=== PATIENT | female | born 1990 | race Caucasian/White ===

== ENCOUNTER 2019-12-13 10:21 | Emergency (ER) | payer MEDICAID, SELFPAY ==
[2019-12-13] VITALS (11 sets, daily range): BP systolic 120–152; BP diastolic 68–89; PULSE 101–125; RESP 13–27; TEMP 37.9; O2SAT 97–100; BMI 23.9
--- NOTE | 2019-12-13 11:26 | ED_ITS ---
HPI - Skin/Abscess/Foreign Bdy General Chief complaint: Skin/Abscess/Foreign Body Stated complaint: Needs Cyst drained Time Seen by Provider: 12/13/19 10:24 Source: patient Mode of arrival: Ambulatory Limitations: no limitations History of Present Illness HPI narrative: 29-year-old woman otherwise healthy presents with septic episode of a Bartholin's duct cyst right labia. First episode was approximately 2 months ago [facility] Emergency Room were a word catheter was placed. Apparently this was exceptionally tender and subsequently became infected. Catheter was removed by physician on [facility] and she was treated with antibiotics successfully. About 2 weeks ago she began noting recurrent fullness in the right labia. It progressed to approximately 2-3 cm in size is becoming more annoying and she would like to have it definitively treated. No new sexual partners, no vaginal discharge, no discharge from the cyst and denies any fevers. Related Data Previous Rx's Medication Instructions Recorded hydrocodone 5 mg-acetaminophen 325 2 tab PO Q4-6H PRN #20 tab 12/13/19 mg tablet sulfamethoxazole 800 1 tab PO Q12H #14 tab 12/13/19 mg-trimethoprim 160 mg tablet Allergies Allergy/AdvReac Type Severity Reaction Status Date / Time No Known Drug Allergies Allergy Verified 12/13/19 10:31 Review of Systems Review of Systems Narrative: Pertinent positive and negative findings as per HPI Describes the fall about a week ago to explain the bruises to the right thigh and legs Remainder of review of systems is otherwise unremarkable for Constitutional: Fevers, chills, weakness ENT: No sore throat, neck pain, ear pain CV: Chest pain, palpitations, dyspnea on exertion Respiratory: Cough, wheeze, dyspnea GI: Nausea, vomiting, diarrhea, change in bowel habits, black or bloody stools : Dysuria, hematuria, flank pain MS: Muscle weakness, numbness, joint swelling or warmth Skin: Rashes, nonhealing lesions Neuro: Syncope, dizziness, tingling Psych: Depression, anxiety, suicidal ideation Endocrine: Fatigue, heat or cold intolerance, very dry skin Heme: Easy bruising or bleeding Allergy: Seasonal rhinorrhea, itchy eyes Patient History Medical History (Updated 12/13/19 @ 13:13 by Lelo Boyd MD) Bartholin's duct cyst (Acute) Social History Smoking Status: Current every day smoker Smoking Status: Current every day smoker alcohol intake frequency: 3 or more drinks per day Alcohol type: hard liquor Substance Use Type: does not use and marijuana Exam Narrative Exam Narrative: General: Healthy appearing, in no acute distress. Able to give a complete and coherent history. Well-nourished well-developed HEENT: Moist mucous membranes, normal sclera with reactive pupils, Neck: No JVD, supple Respiratory: Lungs are clear to auscultation, no wheezing no rales no rhonchi. Full and symmetrical air movement Cardiac: Tachycardic with Regular rate and rhythm no murmurs no bruits Abdomen: Soft nontender good bowel tones, no flank pain Skin: Warm and dry, no rashes Neurologic: Grossly neurologically intact with no obvious asymmetries or abnormalities Extremities: Large bruise right hip, lateral thigh multiple bruises over both legs all about the same stages of healing, well perfused Psych: Cooperative, appropriate insight and affect Genitals: Right Bartholin duct cyst approximately 3 cm, no redness or erythema. No inguinal adenopathy or other evidence of acute infection. Initial Vital Signs Initial Vital Signs: Vital Signs Temperature 100.3 F H 12/13/19 10:25 Pulse Rate 125 H 12/13/19 10:25 Respiratory Rate 13 12/13/19 10:25 Blood Pressure 139/89 12/13/19 10:25 Pulse Oximetry 97 12/13/19 10:25 Procedures Procedural Sedation Consent signed: No Time out performed: Yes Indication: incision and drainage of abscess ASA Class: I Mallampati Airway Classification: Class I Time of Last PO Intake: 06:02 Preparation: monitoring manager applied, pulse oximeter, capnometry used, supplemental O2 applied, suction/airway equipment at bedside and IV secured Fentanyl: IV Fentanyl dose (mcg): 10 Midazolam: IV Midazolam dose (mg): 1 ED Sedation Level: Minimal Patient Tolerated Procedure: Well Complications: none Additional Comments: Marsupialization of bartholin Duct cyst performed by Dr. Aburto. Course Orders Ordered: Discontinued Medications Fentanyl (Sublimaze) 100 mcg IV NOW ONE Stop: 12/13/19 11:18 Last Admin: 12/13/19 12:31 Dose: 100 mcg Documented by: JNUNEZ Lidocaine HCl (Xylocaine 1%) 10 ml INJ NOW ONE Stop: 12/13/19 11:18 Lidocaine HCl (Xylocaine 1% (Pf)) 1 ml INJ NOW ONE Stop: 12/13/19 12:01 Lidocaine/Sodium Bicarbonate (Buffered Lidocaine 10 Ml Syr) 10 ml INJ NOW ONE Stop: 12/13/19 11:52 Last Admin: 12/13/19 12:34 Dose: 10 ml Documented by: MOSES Lorazepam (Ativan) 0.5 mg IV NOW ONE Stop: 12/13/19 11:18 Last Admin: 12/13/19 11:35 Dose: 0.5 mg Documented by: MOSES Midazolam HCl (Versed) 1 mg IV NOW ONE Stop: 12/13/19 11:18 Last Admin: 12/13/19 12:33 Dose: 1 mg Documented by: MOSES Vital Signs Vital signs: Vital Signs - 8 hr 12/13/19 10:25 12/13/19 10:30 12/13/19 11:30 Temperature 100.3 F H Pulse Rate 125 H 121 H 101 H Respiratory Rate 13 22 27 H Blood Pressure 139/89 Blood Pressure [Left Arm] 137/89 129/87 Pulse Oximetry 97 98 99 12/13/19 12:39 12/13/19 12:46 12/13/19 12:48 Temperature Pulse Rate 121 H 115 H 120 H Respiratory Rate 26 H 20 27 H Blood Pressure Blood Pressure [Left Arm] 143/79 H 152/83 H 143/83 H Pulse Oximetry 98 99 99 12/13/19 12:51 12/13/19 12:53 12/13/19 12:58 Temperature Pulse Rate 120 H 117 H Respiratory Rate 16 18 24 Blood Pressure Blood Pressure [Left Arm] 130/73 120/77 Pulse Oximetry 99 97 12/13/19 13:38 Temperature Pulse Rate 111 H Respiratory Rate 25 H Blood Pressure Blood Pressure [Left Arm] 129/72 Pulse Oximetry 99 MDM - Skin/Abscess/Foreign Bdy ECG Data Attestation: I personally reviewed and interpreted this ECG as follows: Interpretation: Sinus tach at 123 Normal axis, normal intervals Q-waves in leads II,III and AVF without any acute ischemic changes currently MDM Narrative Medical decision making narrative: Right Bartholin's duct cyst. Since she had such a negative experience with initial treatment with word catheter and subsequent infection and it has recurred fairly quickly after that brief discussion with Dr. Aburto regarding definitive treatment. Dr. Aburto came to examine the patient and discussed options. Together they chose to proceed with marsupialization procedure. Due to covid issues, as well as access difficulties due to living on [facility], will opt to do procedural sedation in the emergency department and Dr. Aburto will do the marsupialization procedure in the emergency department Discharge Plan Departure Patient Disposition: Home Clinical Impression: Bartholin's duct cyst Instructions: DI for Moderate Sedation, DI for Bartholin Gland Cyst Activity Restrictions/Additional Instructions: Thank you for coming in today Dr. Aburto was the OBGYN who did the marsupialization of your Bartholin duct cyst (cut the cyst open and so the edges to the outside so it heals completely without the option of reforming). Do expect a bit of bleeding and tenderness for the next couple of days. Using water to flow over your labia as you start to pee will help avoid any stinging from the urine. Use pain medication in antibiotics as prescribed. Using 400 mg of ibuprofen (2 [id number] pills) and 1 Tylenol every 6 hours can be very helpful in controlling pain. If you notice increasing pain, redness, odor, more swelling all of these can not indicated infection and none of these are expected. Please follow-up with a healthcare provider should you notice any of these Please schedule follow-up appointment with Dr. Aburto Thank you for coming over and I hope you heal quickly. Prescriptions: No Action hydrocodone-acetaminophen 5-325 mg tablet 2 tab PO Q4-6H PRN (Reason: pain) Qty: 20 RF: 0 sulfamethoxazole-trimethoprim [Bactrim DS] 800-160 mg tablet 1 tab PO Q12H Qty: 14 RF: 0 Referrals: Latrice Aburto MD [Physician] -
[2019-12-13] MEDS: LORazepam 2 MG/ML INJ 0.5 MG IV (11:35)
--- NOTE | 2019-12-13 12:27 | PC.NURSE ---
Addendum entered by Teri Reagan R.N. 01/24/20 08:34: Per XU Posey, Procedural sedation end at 1258 Addendum entered by Teri Reagan R.N. 12/26/19 14:43: This note indicates end of procedural sedation per XU Posey Original Note: Reassessed patient and patient states that she is feeling better. BP 139/81, HR 109, RR 20, O2 97%
[2019-12-13] MEDS: fentaNYL 100 MCG/2 ML INJ IV (12:31)
[2019-12-13] MEDS: MIDAZOLAM 2 MG/2 ML VIAL 1 MG IV (12:33)
[2019-12-13] MEDS: LIDO 1%/SOD BICARB 8.4% (10ML) 10 ML SYRINGE INJ (12:34)
--- NOTE | 2019-12-13 13:21 | PM.CN ---
History of Present Illness Consult details Date Patient Seen: 12/13/19 Time Patient Seen: 10:45 Chief complaint: Needs Cyst drained Reason for consult: Recurring Bartholin's gland cyst Requesting provider: Lelo Boyd Narrative: Patient presented to the emergency room complaining of recurring Bartholin's gland cyst. Patient was originally seen at another facility and a Goel catheter was placed. The patient had severe pain for a week and half and then abnormal discharge eventually was seen by another physician and started on antibiotics and pain medicine which improved her symptoms. About 2 weeks after the a Goel catheter was placed was removed. Patient was doing well but the cyst has recurred. It is large and somewhat uncomfortable. Patient denies any fevers. Patient denies any significant past medical history. Meds Home Medications and Allergies Home Medications Medication Instructions Recorded Confirmed Type hydrocodone 5 mg-acetaminophen 325 2 tab PO Q4-6H PRN #20 tab 12/13/19 Rx mg tablet sulfamethoxazole 800 1 tab PO Q12H #14 tab 12/13/19 Rx mg-trimethoprim 160 mg tablet Allergies Allergy/AdvReac Type Severity Reaction Status Date / Time No Known Drug Allergies Allergy Verified 12/13/19 10:31 Review of Systems Review of Systems Narrative: Swelling in the right side of her vaginal opening that is somewhat on comfort ROS: Yes All systems reviewed with the patient and are negative except as otherwise documented Exam Vital Signs (past 8 hours): - 12/13/19 10:25 12/13/19 10:30 12/13/19 11:30 Temperature 100.3 F H Pulse Rate 125 H 121 H 101 H Respiratory Rate 13 22 27 H Blood Pressure 139/89 Blood Pressure [Left Arm] 137/89 129/87 Pulse Oximetry 97 98 99 12/13/19 12:39 12/13/19 12:46 12/13/19 12:48 Temperature Pulse Rate 121 H 115 H 120 H Respiratory Rate 26 H 20 27 H Blood Pressure Blood Pressure [Left Arm] 143/79 H 152/83 H 143/83 H Pulse Oximetry 98 99 99 12/13/19 12:51 12/13/19 12:53 12/13/19 12:58 Temperature Pulse Rate 120 H 117 H Respiratory Rate 16 18 24 Blood Pressure Blood Pressure [Left Arm] 130/73 120/77 Pulse Oximetry 99 97 Oxygen Delivery Method Room Air Oxygen Flow Rate 2 Narrative Exam Narrative: 6 cm swelling in the right vaginal opening in the Bartholin's gland area. Not particularly painful. No redness. No other abnormalities externally. Assessment & Plan Assessment and plan (1) Bartholin's duct cyst: Problem details: Right side, 2nd recurrence Current visit: Yes Status: Acute Assessment & Plan narrative: Patient with recurrence of a Bartholin's gland cyst after a prior Goel catheter. Patient was given options for placement of another were catheter verses marsupialization. Patient requested marsupialization in the ER under IV sedation. Consent form was reviewed with the patient. Risks are minimal for infection and recurrence despite the marsupialization. Consent form was signed and her questions were answered. See separate dictation for procedure. Time Spent With Patient Time with patient: 15-24 minutes
--- NOTE | 2019-12-13 13:36 | P.PCN_ITS ---
Procedures Date/Time Date of procedure: 12/13/19 Time of procedure: 12:30 General Procedure description: See the consult note. Consent form was signed prior to the procedure. Patient had no further questions. [facility] was [facility] in [facility]. She received IV sedation under supervision by Dr. Boyd. The skin was cleaned with Betadine. The area for incision was injected with approximately 2 cc 1% lidocaine with epinephrine. An incision was made with the scalpel. Large amount of clear mucus see discharge evacuated from the gland. For 0 Vicryl suture was used to stitch the gland to the skin in 5 sutures. Estimated blood loss was 10 cc. Patient tolerated the procedure well. Due to the coronavirus and the patient's distance from the office she will call if she feels she needs a follow-up appointment. She is to call if she has fevers, increasing pain, any concerns about the healing or recurrence of the cyst. Complications: none
== END 2019-12-13 14:35 | disposition home or self-care (01) ==
PROVIDERS: Emergency Provider Emergency Medicine; Referring Provider Emergency Medicine
DX: N75.0 Cyst of Bartholin's gland (principal)
CPT/HCPCS: 10060; 56420; 93005; 94770; 96374; 96375; 99152; 99285; 99291; J2060; J2250; J3010

== ENCOUNTER → 2020-02-16 13:43 | Outpatient (CLI) | payer OTHER, MEDICAID, SELFPAY ==
[2020-02-17 09:23] LABS: COVID19 Sendout Not Detected (Not Detect)
== END ==
PROVIDERS: Visit Provider Physician Assistant
DX: Z01.812 Encounter for preprocedural laboratory examination (principal)
CPT/HCPCS: 87635

== ENCOUNTER → 2020-02-19 09:18 | Day surgery (SDC) | payer OTHER, MEDICAID, SELFPAY ==
[2020-02-13 12:43] VITALS: BMI 25.3
--- NOTE | 2020-02-19 10:51 | PM.CN ---
History of Present Illness Consult details Chief complaint: [id number] Meds Home Medications and Allergies Home Medications Medication Instructions Recorded Confirmed Type hydrocodone 5 mg-acetaminophen 325 2 tab PO Q4-6H PRN #20 tab 12/13/19 02/13/20 Rx mg tablet sulfamethoxazole 800 1 tab PO Q12H #14 tab 12/13/19 02/13/20 Rx mg-trimethoprim 160 mg tablet Allergies Allergy/AdvReac Type Severity Reaction Status Date / Time No Known Drug Allergies Allergy Verified 02/19/20 09:08 Exam Narrative Exam Narrative: Patient was brought to the operating room where she underwent general anesthesia. [facility] was [facility] in [facility] stirr[facility]. A 20 point check system was reviewed. Antibiotics were in prior to beginning case. Warming was in place. Pulsatile stockings were in place and functional. She was prepped and draped in the usual sterile fashion. 15 mL of half percent Marcaine with epinephrine were diluted with 70 mL of saline 10 cc was injected around the mid urethra. An incision was made over the mid urethra with a scalpel. The incision was extended laterally. A Batista catheter was placed with a catheter guide in place. The suprapubic exit sites were marked with a marking pen. The needles attached to the sling were placed from the bottom up and left in place. The catheter was removed and 300 mL of saline were placed in the bladder and cystoscopy was performed. A 70?? scope followed by a 0?? scope were used to look at the bladder and the urethra was no damage apparent with placement of the needles. Both ureters were seen to be functional. The graft was brought up loosely under the mid urethra. With sharp pressure against the bladder there was some leakage of urine. The plastic sheath was removed. The graft was cut under the skin of the suprapubic sites. Skin was closed with Steri-Strips. The vaginal incision was closed with 2-0 vicryl. The area over the rectocele was injected with a dilute solution of 1% lidocaine with epinephrine. An incision was made over the rectocele and enterocele with the scalpel. The dissection was undertaken laterally. Prolene suture with the Capio passer was placed through the uterosacral ligament on the right side and sutured to the underside of the vaginal cuff. 0 Vicryl suture was used to plicate over the rectocele. A finger was placed in the rectum to be sure there were no sutures placed through the rectal mucosa. The uterosacral sutures were tightened down and the vaginal incision was closed with 2-0 Vicryl suture. The perineal body was built up with interrupted 0 Vicryl sutures. The skin was closed with the 2-0 Vicryl suture. Vaginal packing was placed in the vagina and the Batista left in place. Counts of instruments and sponges were correct. The patient went to recovery room in good condition.
== END ==
PROVIDERS: Referring Provider Specialist; Visit Provider Specialist
DX: Z53.9 Procedure and treatment not carried out, unspecified reason (principal)
CPT/HCPCS: J1100; J2250; J2405; J2704; J3010

== ENCOUNTER → 2020-02-19 14:08 | Outpatient (CLI) | payer OTHER, MEDICAID, SELFPAY ==
[2020-02-19 15:22] LABS: COVID19 -Nasal RAPID Negative (Negative)
== END ==
PROVIDERS: Visit Provider Student in an Organized Health Care Education/Training Program
DX: Z01.812 Encounter for preprocedural laboratory examination (principal)
CPT/HCPCS: 87635

== ENCOUNTER 2020-02-20 12:39 | Day surgery (SDC) | payer OTHER, MEDICAID, SELFPAY ==
[2020-02-19 12:14] VITALS: BMI 25.3
--- NOTE | 2020-02-20 | PATH_ITS ---
[facility] Accession Number: [id number] . 01 Material submitted: . PART A: body - BARTHOLIN GLAND CYST SEGMENT PART B: vulva - RIGHT VULVAR LESION . 01 Diagnosis: A. Bartholin Gland Cyst Segment, Biopsy: Fragment of fibrous tissue with slight telangiectasia and mild chronic inflammation. . B. Right Vulvar, Biopsy: Irritated compound melanocytic nevus. . Note: Features consistent with local irritation are noted. Melan-A immunohistochemical stain performed supports the above diagnosis. P16 expression is mosaic, also supporting the diagnosis. MRV 02/26/2020 1421 Local . 01 Electronically signed: . Mitali Oglesby MD, Dermatopathologist NPI- [id number] . 01 Gross description: . Part A: BARTHOLIN GLAND CYST SEGMENT: Received in formalin is 1 fragment of calix soft tissue measuring 0.6 x 0.4 x 0.1 cm. Tissue is inked. Specimen is submitted in its entirety in 1 cassette. Part B: RIGHT VULVAR LESION: Received in formalin is 1 fragment of calix soft tissue measuring 0.3 x 0.2 x 0.2 cm. Tissue is inked. Specimen is submitted in its entirety in 1 cassette. /MIAN 02/21/2020 2117 Local . 01 Pathologist provided ICD-10: L98.9, D22.9 . 01 CPT . 472249, 652891, [id number], [id number] Performed at: 01 [facility] [address] [place] [id number] MD Thomas Marroquin MD Phone: [phone]
[2020-02-20 12:58] VITALS: BMI 24.2
[2020-02-20 13:04] VITALS: BP 136/101; PULSE 100; RESP 20; TEMP 37.1; O2SAT 97
[2020-02-20] MEDS: LACTATED RINGERS 1,000 ML 100 ML IV (13:07)
--- NOTE | 2020-02-20 13:37 | PM.PREOP ---
Pre-operative Note COVID-19 COVID-19 status: Negative Result date/Date tested (Pos, Neg/Pending): 02/20/20 Interval Note History & Physical reviewed/Exam performed by Physician: Yes Changes to H&P: No
--- NOTE | 2020-02-20 13:37 | PM.GYNHP.1 ---
History of Present Illness History of Present Illness Reason for admission: other (right bartholins gland cyst) Narrative: Sally Major is a 29 year old female admitted for marsupialization of right Bartholin's gland cyst. Patient says initial Bartholin's gland abscess was treated with a Goel catheter which was removed 2 weeks later than the gland recurred. Patient had marsupialization of the Bartholin's gland cyst in the ER on 12/13/2019 however it closed over again quickly. Patient comes in for operative marsupialization. [facility] Medical History (Updated 02/13/20 @ 12:51 by Sia Woods RN) Bartholin's duct cyst (Acute) Social History Smoking Status: Current every day smoker alcohol intake: current Meds Home Medications and Allergies Home Medications Medication Instructions Recorded Confirmed Type hydrocodone 5 mg-acetaminophen 325 2 tab PO Q4-6H PRN #20 tab 12/13/19 02/20/20 Rx mg tablet sulfamethoxazole 800 1 tab PO Q12H #14 tab 12/13/19 02/20/20 Rx mg-trimethoprim 160 mg tablet Allergies Allergy/AdvReac Type Severity Reaction Status Date / Time No Known Drug Allergies Allergy Verified 02/20/20 12:57 Review of Systems Review of Systems Narrative: Patient with continued growth of her right Bartholin's gland cyst probably not infected at this point. ROS: Yes All systems reviewed with the patient and are negative except as otherwise documented Exam Vital Signs (past 8 hours): - 02/20/20 13:04 Temperature 98.7 F Pulse Rate 100 H Respiratory Rate 20 Blood Pressure 136/101 H Pulse Oximetry 97 Oxygen Delivery Method Room Air Narrative Exam Narrative: HEENT exam within normal limits. Lungs are clear to auscultation percussion. Heart is regular rate and rhythm no S3-S4 or murmurs. Abdomen is soft, nontender with no palpable organomegaly. Right enlarged Bartholin's gland normal left Bartholin's gland with normal extremities. Assessment & Plan Assessment and plan (1) Bartholin's duct cyst: Problem details: Right side, 2nd recurrence. Marsupialization 12/13/19 Status: Acute Assessment & Plan narrative: Patient with recurrent right Bartholin's gland duct cyst for marsupialization a 2nd time. Consent form was reviewed with the patient. Risks include bleeding, if infection, pain, recurrence of the cyst. Consent form was signed and questions answered.
[2020-02-20] MEDS: CEFAZOLIN 2 GM/100 ML FROZ.PIGGY IV (13:58)
--- NOTE | 2020-02-20 14:21 | SUR.OPER ---
Lithotomy on padded OR bed, head on pillow, arms secured on padded arm boards at <90 degrees abduction. Legs secured in padded yellow fins stirrups.
[2020-02-20] MEDS: BUPIVACAINE 0.5% W/ EPI (PF) 10 ML VIAL INJ (14:26)
[2020-02-20 14:40] VITALS: BP 135/100; PULSE 96; RESP 18; TEMP 36.1; O2SAT 98
[2020-02-20 14:48] VITALS: BP 137/50; PULSE 91; RESP 18; O2SAT 96
[2020-02-20 14:52] VITALS: BP 135/91; PULSE 88; RESP 18; O2SAT 97
--- NOTE | 2020-02-20 14:54 | PM.OP.1 ---
Operative Date/Time/Diagnoses Date of procedure: 02/20/20 Time of procedure: 14:54 Pre-op diagnosis: Recurrent Bartholin's gland on the right side Post-op diagnosis: same Procedure & Clinicians Procedure: Marsupialization of the right Bartholin's gland , biopsy of right vulvar pigmented lesion Same procedure as scheduled: No (Pgmented lesion was not noted before, slightly concerning appearance for ca) Indications: Recurring right Bartholin's gland cyst Surgeon: Latrice Aburto Click Yes if Unassisted: Yes Anesthesia Type: General Operative Notes Findings: Brown, raised, irregular lesion on the right labia majora. 4 cm right Bartholin's gland cyst not abscess. Closure Type: primary Specimen(s): other (Biopsy of Bartholin's gland and biopsy of vulvar lesion) Estimated Blood Loss (mL): 5 Blood products transfused: none Procedure in detail: Patient was brought to the operating room where she underwent general anesthesia. She was prepped and draped in usual sterile fashion in [employer] stirrups. 2 g Ancef were in prior to beginning of the case. Warming was with blankets. Pulsitile stockings were in place and functional. A check system was reviewed with the staff in the room prior to beginning the case. An incision was made in the skin over the right lungs gland cyst. Large amount of mucus was released. Biopsy of the gland wall was sent to pathology. The gland wall was sutured to the skin with interrupted 4 0 Vicryl suture. The vulvar lesion on the right side was biopsied. The biopsy was sent to pathology. Patient went to recovery room in good condition. Counts of instruments and sponges were correct. Complications: none Post-operative Condition: stable Disposition: same day surgery Plan for aftercare: Patient is keep the area clean and dry for healing and follow-up as needed.
--- NOTE | 2020-02-20 15:31 | SUR.PHASEII ---
Dr. Aburto made aware prescription to closed pharmacy. New scripts to [facility], called and verified. Pt ready to go, left in stable condition.
[2020-02-20 16:22] VITALS: BP 130/90; PULSE 79; RESP 16; TEMP 36.7; O2SAT 100
== END 2020-02-20 15:30 | disposition home or self-care (01) ==
PROVIDERS: Referring Provider Specialist; Visit Provider Specialist
PROC: (CPT 56440; principal; 2020-02-20 14:00)
DX: N75.0 Cyst of Bartholin's gland (principal); F17.210 Nicotine dependence, cigarettes, uncomplicated; D22.9 Melanocytic nevi, unspecified
CPT/HCPCS: 56440; J0690

== ENCOUNTER → 2021-03-05 09:01 | Outpatient (CLI) | payer OTHER, MEDICAID, SELFPAY ==
[2021-03-05 19:32] LABS: Add Manual Diff / Slide Review NO; Basophils Absolute Auto 100 /uL (0-100); Eosinophils Absolute Auto 300 /uL (0-450); Eosinophils Percent Auto 4.4 % (2-4); Hematocrit 44.3 % (36-46); Hemoglobin 14.9 g/dL (12.0-16.0); Lymphocytes Absolute Auto 1700 /uL (1100-4500); Lymphocytes Percent Auto 25.8 % (25-40); Mean Corpuscular HGB Conc 33.7 % (30-36); Mean Corpuscular Hemoglobin 35.3 PG (26-34); Mean Corpuscular Volume 104.7 fL (80-100); Monocytes Absolute Auto 600 /uL (0-900); Monocytes Percent Auto 8.6 % (3-14); Neutrophils Absolute Auto 4100 /uL (1500-7000); Neutrophils Percent Auto 60.2 % (50-75); Platelet Count 246 X10^3/uL (150-400); Red Blood Cell Count 4.23 X10^6/uL (4.0-5.2); Red Cell Distribution Width 14.3 % (11.6-14.8); White Blood Cell Count 6.8 X10^3/uL (4.5-11.0)
[2021-03-05 20:08] LABS: TSH w/ Reflex to FT4 2.34 uIU/mL (0.47-4.68)
== END ==
PROVIDERS: PCP Physician Assistant Medical; Visit Provider Physician Assistant Medical
DX: F32.9 Major depressive disorder, single episode, unspecified (principal); F41.9 Anxiety disorder, unspecified; G47.00 Insomnia, unspecified; R79.89 Other specified abnormal findings of blood chemistry
CPT/HCPCS: 82306; 84443; 85025

== ENCOUNTER 2021-11-06 15:16 | Emergency (ER) | payer OTHER, MEDICAID, SELFPAY ==
[2021-11-06 15:24] VITALS: BP 186/94; PULSE 122; RESP 16; TEMP 36.7; O2SAT 98; BMI 26.5
--- NOTE | 2021-11-06 15:55 | ED.PSYCH ---
HPI - Psych <Brent Morales PA-C - Last Filed: 11/06/21 19:49> General Chief Complaint: Psychiatric Symptoms Stated Complaint: withdrawl, mental health eval Time Seen by Provider: 11/06/21 15:47 Mode of arrival: Ambulatory History of Present Illness HPI Narrative: Patient is a 31-year-old female presents to the ED with a history of alcohol abuse depression and anxiety. Patient reports today that she wants to seek help for her alcohol difficulties. She denies any suicidal ideations or homicidal ideations. She states her last drink was last night 6:00 p.m.. She has been heavily drinking for the past 2 years. No other complaints reported. Related Data Previous Rx's Medication Instructions Recorded citalopram 20 mg tablet See Rx Instructions .ROUTE 07/09/21 .COMPLEX #30 tab Allergies Allergy/AdvReac Type Severity Reaction Status Date / Time No Known Drug Allergies Allergy Verified 02/20/20 12:57 celery AdvReac Severe Anaphylaxis Uncoded 03/05/21 08:29 Review of Systems <Brent Morales PA-C - Last Filed: 11/06/21 19:49> Review of Systems ROS Unobtainable: All systems reviewed & are unremarkable except as noted in HPI and below Constitutional Constitutional: Denies chills, Denies fatigue, Denies fever(s), Denies frequent falls, Denies lethargy and Denies weakness Eyes Eyes: Denies change in vision, Denies eye discharge, Denies irritation and Denies loss of vision ENT Ears, Nose, Mouth, and Throat: Denies change in voice, Denies dizziness, Denies neck pain, Denies sore throat and Denies throat swelling Cardiovascular Cardiovascular: Denies chest pain, Denies irregular heart rhythm, Denies lightheadedness, Denies palpitations, Denies dyspnea, Denies dyspnea on exertion and Denies orthopnea Respiratory Respiratory: Denies cough, Denies dyspnea, Denies dyspnea on exertion and Denies wheezing Gastrointestinal Gastrointestinal: Denies abdominal pain, Denies change in bowel habits, Denies diarrhea, Denies nausea and Denies vomiting Genitourinary Genitourinary: Denies hematuria, Denies flank pain, Denies urinary incontinence and Denies urinary urgency Musculoskeletal Musculoskeletal: Denies back pain, Denies muscle weakness, Denies neck pain, Denies numbness and Denies tingling Integumentary/Breasts Skin/Breast: Denies pruritus, Denies erythema, Denies rash and Denies wounds Neurologic Neurologic: Denies behavioral changes, Denies confusion, Denies dizziness, Denies frequent falls, Denies loss of vision, Denies numbness, Denies tingling and Denies weakness Psychiatric Psychiatric: Reports anxiety, Denies behavioral changes, Denies confusion, Reports depression, Denies homicidal ideation and Denies suicidal ideation Endocrine Endocrine: Denies fatigue, Denies flushing and Denies palpitations Hematologic/Lymphatic Hematologic/Lymphatic: Denies easy bruising Allergic/Immunologic Allergic/Immunologic: Denies urticaria, Denies throat swelling and Denies wheezing Patient History <Brent Morales PA-C - Last Filed: 11/06/21 19:49> Medical History Carpal tunnel syndrome (~2008) Foot pain (~2008) Shoulder pain (~2016) Substance abuse (~2006) Surgical History Anesthesia Bartholin's duct cyst Family History Mother Mental health problem TBI (traumatic brain injury) Brother Mental health problem Sister Mental health problem Drug addiction Grandfather Hypertension Grandmother History of heart attack Grandmother Cancer Social History Smoking Status: Current every day smoker alcohol intake: current Smoking Status: Current every day smoker tobacco type: cigarettes alcohol intake frequency: 3 or more drinks per day Alcohol type: hard liquor Substance Use Type: marijuana Exam <Brent Morales PA-C - Last Filed: 11/06/21 19:49> Initial Vital Signs Initial Vital Signs: Vital Signs Temperature 98.1 F 11/06/21 15:24 Pulse Rate 122 H 11/06/21 15:24 Respiratory Rate 16 11/06/21 15:24 Blood Pressure 186/94 H 11/06/21 15:24 Pulse Oximetry 98 11/06/21 15:24 Const General: cooperative, healthy appearing, comfortable and well developed Nutritional Appearance: average body habitus Orientation: Orientation Psych Appearance: grossly normal Mental Status: mental status grossly normal Speech and Movement: speech and movement normal Mood: anxious mood Affect: sad Thought Process: normal Thought Content: normal Judgment: judgment good <Lelo Boyd MD - Last Filed: 11/06/21 23:07> Initial Vital Signs Initial Vital Signs: Vital Signs Temperature 98.1 F 11/06/21 15:24 Pulse Rate 122 H 11/06/21 15:24 Respiratory Rate 16 11/06/21 15:24 Blood Pressure 186/94 H 11/06/21 15:24 Pulse Oximetry 98 11/06/21 15:24 Course <Brent Morales PA-C - Last Filed: 11/06/21 19:49> Orders Ordered: ED Orders 11/06/21 15:18 [place] [facility] [place] Stat 11/06/21 16:06 Acetaminophen Stat CBC Auto Diff [Complete Blood Count AUTO DIFF] Stat CMP [Comprehensive Metabolic Panel] Stat ETOH [Ethanol (ETOH)] Stat Ethanol (ETOH) Stat Salicylate Stat 11/06/21 16:11 Urine Drug Screen, Rapid Stat 11/06/21 16:16 COVID19 -Nasal swab/Pre-Proc Stat 11/06/21 17:37 CT abdomen pelvis w con Stat Discontinued Medications Lorazepam (Lorazepam 0.5 Mg Tablet) 1 mg PO NOW ONE Stop: 11/06/21 20:04 Last Admin: 11/06/21 20:30 Dose: 1 mg Documented by: REENA Nicotine (Nicotine 21 Mg Patch) 21 mg TOP NOW ONE Stop: 11/06/21 20:04 Last Admin: 11/06/21 20:29 Dose: 21 mg Documented by: REENA Reevaluation(s) Reevaluation #1: Reviewed labs and CT findings with patient answered all questions regarding current medical treatment options. Patient was medically cleared inpatient Chemical placement will progress. Vital Signs Vital signs: Vital Signs - 8 hr 11/06/21 15:24 11/06/21 19:31 Temperature 98.1 F Pulse Rate 122 H 88 Respiratory Rate 16 18 Blood Pressure 186/94 H 184/106 H Pulse Oximetry 98 100 <Lelo Boyd MD - Last Filed: 11/06/21 23:07> Orders Ordered: ED Orders 11/06/21 15:18 [place] [facility] [place] Stat 11/06/21 16:06 Acetaminophen Stat CBC Auto Diff [Complete Blood Count AUTO DIFF] Stat CMP [Comprehensive Metabolic Panel] Stat ETOH [Ethanol (ETOH)] Stat Ethanol (ETOH) Stat Salicylate Stat 11/06/21 16:11 Urine Drug Screen, Rapid Stat 11/06/21 16:16 COVID19 -Nasal swab/Pre-Proc Stat 11/06/21 17:37 CT abdomen pelvis w con Stat Discontinued Medications Lorazepam (Lorazepam 0.5 Mg Tablet) 1 mg PO NOW ONE Stop: 11/06/21 20:04 Last Admin: 11/06/21 20:30 Dose: 1 mg Documented by: REENA Nicotine (Nicotine 21 Mg Patch) 21 mg TOP NOW ONE Stop: 11/06/21 20:04 Last Admin: 11/06/21 20:29 Dose: 21 mg Documented by: REENA Vital Signs Vital signs: Vital Signs - 8 hr 11/06/21 15:24 11/06/21 19:31 Temperature 98.1 F Pulse Rate 122 H 88 Respiratory Rate 16 18 Blood Pressure 186/94 H 184/106 H Pulse Oximetry 98 100 MDM - Psych <Brent Morales PA-C - Last Filed: 11/06/21 19:49> Differential Diagnosis Differential diagnosis: Likely depression and other (Alcoholism) Lab Data Result diagrams: 11/06/21 16:06 11/06/21 16:06 Labs: Lab Results 11/06/21 11/06/21 11/06/21 Range/Units 16:06 16:06 16:06 WBC 8.6 (4.5-11.0) X10^3/uL RBC 4.28 (4.0-5.2) X10^6/uL Hgb 15.4 (12.0-16.0) g/dL Hct 44.4 (36-46) % MCV 103.8 H (80-100) fL MCH 36.1 H (26-34) PG MCHC 34.8 (30-36) % RDW 15.0 H (11.6-14.8) % Plt Count 282 (150-400) X10^3/uL Neut % (Auto) 72.0 (50-75) % Lymph % (Auto) 16.7 L (25-40) % [place] % (Auto) 9.5 (3-14) % Eos % (Auto) 0.5 L (2-4) % Baso % (Auto) 1.3 (0-2) % Neut # (Auto) 6200 (6242-0282) /uL Lymph # (Auto) 1400 (7142-6407) /uL [place] # (Auto) 800 (0-900) /uL Eos # (Auto) 0 (0-450) /uL Baso # (Auto) 100 (0-100) /uL Sodium 135 L (137-145) mmol/L Potassium 3.8 (3.4-5.1) mmol/L Chloride 95 L (98-107) mmol/L Carbon Dioxide 29 (22-32) mmol/L BUN 7 (7-17) mg/dL Creatinine 0.78 (0.52-1.04) mg/dL Estimated GFR > 60.0 (>60) mL/min BUN/Creatinine Ratio 9.0 (6-22) Glucose 130 H (70-100) mg/dL Calcium 10.7 H (8.4-10.2) mg/dL Total Bilirubin 1.4 H (0.2-1.3) mg/dL AST 172 H (14-36) IU/L ALT 173 H (<35) IU/L Alkaline Phosphatase 124 (38-126) U/L Total Protein 9.6 H (6.3-8.2) g/dL Albumin 5.5 H (3.5-5.0) g/dL Globulin 4.1 (1.7-4.1) g/dL Albumin/Globulin Ratio 1.3 (1.0-2.8) Salicylates < 1.0 (<20) mg/dL U Opiates 300ng/mL cut (Negative) Ur Oxycodone Screen (Negative) Urine Methadone Screen (Negative) Acetaminophen < 10 (10-30) ug/mL Ur Barbiturates Screen (Negative) U Tricyclic Antidepress (Negative) Ur Phencyclidine Scrn (Negative) Ur Amphetamines Screen (Negative) U Methamphetamines Scrn (Negative) Ur MDMA Scrn (Ecstasy) (Negative) U Benzodiazepines Scrn (Negative) Urine Cocaine Screen (Negative) U Marijuana (THC) Screen (Negative) Ethyl Alcohol < 10 < 10 ( - 10) mg/dL SARS-CoV-2 (PCR) (Negative) 11/06/21 11/06/21 Range/Units 16:11 16:16 WBC (4.5-11.0) X10^3/uL RBC (4.0-5.2) X10^6/uL Hgb (12.0-16.0) g/dL Hct (36-46) % MCV (80-100) fL MCH (26-34) PG MCHC (30-36) % RDW (11.6-14.8) % Plt Count (150-400) X10^3/uL Neut % (Auto) (50-75) % Lymph % (Auto) (25-40) % [place] % (Auto) (3-14) % Eos % (Auto) (2-4) % Baso % (Auto) (0-2) % Neut # (Auto) (6214-7837) /uL Lymph # (Auto) (5090-6514) /uL [place] # (Auto) (0-900) /uL Eos # (Auto) (0-450) /uL Baso # (Auto) (0-100) /uL Sodium (137-145) mmol/L Potassium (3.4-5.1) mmol/L Chloride (98-107) mmol/L Carbon Dioxide (22-32) mmol/L BUN (7-17) mg/dL Creatinine (0.52-1.04) mg/dL Estimated GFR (>60) mL/min BUN/Creatinine Ratio (6-22) Glucose (70-100) mg/dL Calcium (8.4-10.2) mg/dL Total Bilirubin (0.2-1.3) mg/dL AST (14-36) IU/L ALT (<35) IU/L Alkaline Phosphatase (38-126) U/L Total Protein (6.3-8.2) g/dL Albumin (3.5-5.0) g/dL Globulin (1.7-4.1) g/dL Albumin/Globulin Ratio (1.0-2.8) Salicylates (<20) mg/dL U Opiates 300ng/mL cut Negative (Negative) Ur Oxycodone Screen Negative (Negative) Urine Methadone Screen Negative (Negative) Acetaminophen (10-30) ug/mL Ur Barbiturates Screen Negative (Negative) U Tricyclic Antidepress Negative (Negative) Ur Phencyclidine Scrn Negative (Negative) Ur Amphetamines Screen Negative (Negative) U Methamphetamines Scrn Negative (Negative) Ur MDMA Scrn (Ecstasy) Negative (Negative) U Benzodiazepines Scrn Negative (Negative) Urine Cocaine Screen Negative (Negative) U Marijuana (THC) Screen Positive H (Negative) Ethyl Alcohol ( - 10) mg/dL SARS-CoV-2 (PCR) Negative (Negative) Point of Care Testing Test Results Negative Urine Dip Bedside Urine Glucose Negative Bedside Urine Bilirubin + 1 Bedside Urine Ketone +/- 5 Urine Specific [place] 1.015 Bedside Urine Occult Blood +/- Bedside Urine pH 7.5 Bedside Urine Protein +/- 15 Bedside Urine Urobilinogen - Negative Bedside Urine Nitrite - Negative Bedside Urine Leukocytes +/- [address] scan - abdomen/pelvis: Radiologist's Impression: [address] [address] [address] Scan Report Signed Patient: Sally Major MR#: [id number] : 1990 Acct:[id number] Age/Sex: 31 / F Date of Service: 11/06/21 Loc: ED Accession Number: [id number] ?? Procedure: CT abdomen pelvis w con Ordering Provider: Brent Morales P.A-C PROCEDURE:? CT ABDOMEN PELVIS W CON ? INDICATIONS:? liver, abdominal pain ? TECHNIQUE:? After the administration of intravenous contrast, axial sections acquired from the lung bases to the pubic symphysis.? Coronal and sagittal reformats were performed.? For radiation dose reduction, the following was used:? automated exposure control, adjustment of mA and/or kV according to patient size.? ? COMPARISON:? None. ? FINDINGS:? Image quality:? Excellent.? ? Lung bases:? Unremarkable. Heart:? No significant findings. ? ABDOMEN: Liver:There is diffuse hypoattenuation of the liver parenchyma relative to the spleen compatible with hepatic steatosis.? There is hepatomegaly. Gallbladder:? Unremarkable.? ? Biliary ducts:? Unremarkable.? ? Pancreas:? Homogeneous enhancement without focal lesions or pancreatic ductal dilatation. ?No peripancreatic inflammation or organized fluid collections..? ? Spleen:? Unremarkable.? ? Adrenal Glands:? Unremarkable.? ? Kidneys and Ureters:Kidneys are symmetric in size and enhancement, and there is no obstructive uropathy.? No perinephric inflammatory changes. Ureters are normal in course and caliber.? ? Stomach and Bowel:? Stomach, small bowel loops, and colon appear unremarkable.? Minimal circumferential wall thickening of the hepatic flexure distal transverse colon and descending colon without adjacent inflammatory changes likely related to incomplete distension.? Normal appendix. Peritoneum:? No abnormal intraperitoneal fluid.? No free air.? ? Ventral Wall: There is a fat-containing umbilical hernia without acute inflammation. Abdominal Nodes:? No retroperitoneal or mesenteric adenopathy by size criteria.? Vessels:? Aorta and inferior vena cava are normal in size.? ? PELVIS: Pelvic Organs:? Unremarkable.? ? Bladder:Kidneys are symmetric in size and enhancement, and there is no obstructive uropathy.? No perinephric inflammatory changes. Ureters are normal in course and caliber. ? Pelvic Nodes: No enlarged lymph nodes.? Miscellaneous: No hernias are seen. ? ? ? Bones:? Unremarkable. ? IMPRESSION:? ? 1. Hepatomegaly with moderate diffuse hepatic steatosis. ? 2. Minimal circumferential wall thickening of the ascending colon near the hepatic flexure, distal transverse colon, and descending colon without associated inflammatory changes are likely related to incomplete distension.? However, infectious/inflammatory colitis not completely excluded if clinically appropriate.? The appendix is normal. ? 3. Fat containing umbilical hernia without acute inflammation.? ? Dictated by: Weston Sparks M.D. on 11/06/2021 at 19:02 ? ? Approved by: Weston Sparks M.D. on 11/06/2021 at 19:07?? MDM Narrative Medical decision making narrative: Patient presented today for concerns about chronic alcohol abuse and depression. Patient is seeking treatment and would like to be placed inpatient for chemical treatment of alcohol. Blood work EKG and CT scan all done patient medically cleared. Social Work advised and will place patient and treatment. Patient is agreeable all questions were answered. <Lelo Boyd MD - Last Filed: 11/06/21 23:07> Lab Data Labs: Lab Results 11/06/21 11/06/21 11/06/21 Range/Units 16:06 16:06 16:06 WBC 8.6 (4.5-11.0) X10^3/uL RBC 4.28 (4.0-5.2) X10^6/uL Hgb 15.4 (12.0-16.0) g/dL Hct 44.4 (36-46) % MCV 103.8 H (80-100) fL MCH 36.1 H (26-34) PG MCHC 34.8 (30-36) % RDW 15.0 H (11.6-14.8) % Plt Count 282 (150-400) X10^3/uL Neut % (Auto) 72.0 (50-75) % Lymph % (Auto) 16.7 L (25-40) % [place] % (Auto) 9.5 (3-14) % Eos % (Auto) 0.5 L (2-4) % Baso % (Auto) 1.3 (0-2) % Neut # (Auto) 6200 (4639-8160) /uL Lymph # (Auto) 1400 (2701-7501) /uL [place] # (Auto) 800 (0-900) /uL Eos # (Auto) 0 (0-450) /uL Baso # (Auto) 100 (0-100) /uL Sodium 135 L (137-145) mmol/L Potassium 3.8 (3.4-5.1) mmol/L Chloride 95 L (98-107) mmol/L Carbon Dioxide 29 (22-32) mmol/L BUN 7 (7-17) mg/dL Creatinine 0.78 (0.52-1.04) mg/dL Estimated GFR > 60.0 (>60) mL/min BUN/Creatinine Ratio 9.0 (6-22) Glucose 130 H (70-100) mg/dL Calcium 10.7 H (8.4-10.2) mg/dL Total Bilirubin 1.4 H (0.2-1.3) mg/dL AST 172 H (14-36) IU/L ALT 173 H (<35) IU/L Alkaline Phosphatase 124 (38-126) U/L Total Protein 9.6 H (6.3-8.2) g/dL Albumin 5.5 H (3.5-5.0) g/dL Globulin 4.1 (1.7-4.1) g/dL Albumin/Globulin Ratio 1.3 (1.0-2.8) Salicylates < 1.0 (<20) mg/dL U Opiates 300ng/mL cut (Negative) Ur Oxycodone Screen (Negative) Urine Methadone Screen (Negative) Acetaminophen < 10 (10-30) ug/mL Ur Barbiturates Screen (Negative) U Tricyclic Antidepress (Negative) Ur Phencyclidine Scrn (Negative) Ur Amphetamines Screen (Negative) U Methamphetamines Scrn (Negative) Ur MDMA Scrn (Ecstasy) (Negative) U Benzodiazepines Scrn (Negative) Urine Cocaine Screen (Negative) U Marijuana (THC) Screen (Negative) Ethyl Alcohol < 10 < 10 ( - 10) mg/dL SARS-CoV-2 (PCR) (Negative) 11/06/21 11/06/21 Range/Units 16:11 16:16 WBC (4.5-11.0) X10^3/uL RBC (4.0-5.2) X10^6/uL Hgb (12.0-16.0) g/dL Hct (36-46) % MCV (80-100) fL MCH (26-34) PG MCHC (30-36) % RDW (11.6-14.8) % Plt Count (150-400) X10^3/uL Neut % (Auto) (50-75) % Lymph % (Auto) (25-40) % [place] % (Auto) (3-14) % Eos % (Auto) (2-4) % Baso % (Auto) (0-2) % Neut # (Auto) (8571-6055) /uL Lymph # (Auto) (3115-7209) /uL [place] # (Auto) (0-900) /uL Eos # (Auto) (0-450) /uL Baso # (Auto) (0-100) /uL Sodium (137-145) mmol/L Potassium (3.4-5.1) mmol/L Chloride (98-107) mmol/L Carbon Dioxide (22-32) mmol/L BUN (7-17) mg/dL Creatinine (0.52-1.04) mg/dL Estimated GFR (>60) mL/min BUN/Creatinine Ratio (6-22) Glucose (70-100) mg/dL Calcium (8.4-10.2) mg/dL Total Bilirubin (0.2-1.3) mg/dL AST (14-36) IU/L ALT (<35) IU/L Alkaline Phosphatase (38-126) U/L Total Protein (6.3-8.2) g/dL Albumin (3.5-5.0) g/dL Globulin (1.7-4.1) g/dL Albumin/Globulin Ratio (1.0-2.8) Salicylates (<20) mg/dL U Opiates 300ng/mL cut Negative (Negative) Ur Oxycodone Screen Negative (Negative) Urine Methadone Screen Negative (Negative) Acetaminophen (10-30) ug/mL Ur Barbiturates Screen Negative (Negative) U Tricyclic Antidepress Negative (Negative) Ur Phencyclidine Scrn Negative (Negative) Ur Amphetamines Screen Negative (Negative) U Methamphetamines Scrn Negative (Negative) Ur MDMA Scrn (Ecstasy) Negative (Negative) U Benzodiazepines Scrn Negative (Negative) Urine Cocaine Screen Negative (Negative) U Marijuana (THC) Screen Positive H (Negative) Ethyl Alcohol ( - 10) mg/dL SARS-CoV-2 (PCR) Negative (Negative) Point of Care Testing Test Results Negative Urine Dip Bedside Urine Glucose Negative Bedside Urine Bilirubin + 1 Bedside Urine Ketone +/- 5 Urine Specific [place] 1.015 Bedside Urine Occult Blood +/- Bedside Urine pH 7.5 Bedside Urine Protein +/- 15 Bedside Urine Urobilinogen - Negative Bedside Urine Nitrite - Negative Bedside Urine Leukocytes +/- 15 Esterase MDM Narrative Medical decision making narrative: Patient presented today for concerns about chronic alcohol abuse and depression. Patient is seeking treatment and would like to be placed inpatient for chemical treatment of alcohol. Blood work EKG and CT scan all done patient medically cleared. Social Work advised and will place patient and treatment. Patient is agreeable all questions were answered. 11pm pt accepted at [facility] and her father will drive her [facility] Discharge Plan Departure Patient Disposition: Home Clinical Impression: Alcoholism, Depression Instructions: Depression, DI for Alcohol Use Disorder Activity Restrictions/Additional Instructions: You were seen and treated today for alcohol concerns. Your blood work and x-rays were reviewed and you are medically cleared. As we spoke about before it is essential that you stop drinking in or consuming any alcohol related substance. I also would avoid any medications that contain Tylenol or aspirin. Thank you for the opportunity to care for you today. Prescriptions: No Action citalopram 20 mg tablet See Rx Instructions .ROUTE .COMPLEX Qty: 30 0RF Dose Instruction: TAKE ONE TABLET BY MOUTH EVERY DAY Rx Instructions: TAKE ONE TABLET BY MOUTH EVERY DAY Referrals: Rylee Marc PA-C [Primary Care Provider] -
[2021-11-06 16:14] LABS: Add Manual Diff / Slide Review NO; Basophils Absolute Auto 100 /uL (0-100); Basophils Percent Auto 1.3 % (0-2); Eosinophils Absolute Auto 0 /uL (0-450); Eosinophils Percent Auto 0.5 % (2-4); Hematocrit 44.4 % (36-46); Hemoglobin 15.4 g/dL (12.0-16.0); Lymphocytes Absolute Auto 1400 /uL (1100-4500); Lymphocytes Percent Auto 16.7 % (25-40); Mean Corpuscular HGB Conc 34.8 % (30-36); Mean Corpuscular Hemoglobin 36.1 PG (26-34); Mean Corpuscular Volume 103.8 fL (80-100); Monocytes Absolute Auto 800 /uL (0-900); Monocytes Percent Auto 9.5 % (3-14); Neutrophils Absolute Auto 6200 /uL (1500-7000); Platelet Count 282 X10^3/uL (150-400); Red Blood Cell Count 4.28 X10^6/uL (4.0-5.2); White Blood Cell Count 8.6 X10^3/uL (4.5-11.0)
[2021-11-06 16:18] LABS: UR Morphine/Opiate cutoff 300 Negative (Negative); Ur Creatinine Normal (Normal); Ur Specific Gravity Normal (Normal); Urine Amphetamines Negative (Negative); Urine Barbiturates Negative (Negative); Urine Benzodiazepines Negative (Negative); Urine Cocaine Negative (Negative); Urine MDMA Negative (Negative); Urine Methadone Negative (Negative); Urine Methamphetamines Negative (Negative); Urine Oxycodone Negative (Negative); Urine Phencyclidine Negative (Negative); Urine Tetrahydrocannabinol Positive (Negative); Urine Tricyclic Antidepressant Negative (Negative); Urine pH Normal (Normal)
[2021-11-06 16:29] LABS: Acetaminophen < 10 ug/mL (10-30); Alanine Aminotransferase 173 IU/L (<35); Albumin 5.5 g/dL (3.5-5.0); Alkaline Phosphatase 124 U/L (38-126); Aspartate Aminotransferase 172 IU/L (14-36); Bilirubin Total 1.4 mg/dL (0.2-1.3); Blood Urea Nitrogen 7 mg/dL (7-17); Calcium 10.7 mg/dL (8.4-10.2); Carbon Dioxide 29 mmol/L (22-32); Chloride 95 mmol/L (98-107); Estimated Glomerular Filt Rate > 60.0 mL/min (>60); Ethanol (ETOH) < 10 mg/dL; Glucose 130 mg/dL (70-100); HEMOLYSIS 17 (0-50); Potassium 3.8 mmol/L (3.4-5.1); Salicylate < 1.0 mg/dL (<20); Sodium 135 mmol/L (137-145)
--- NOTE | 2021-11-06 16:40 | CM.SWNOTE ---
CAKE KNOCKER Assessment CAKE KNOCKER - Geographic Analyst Assessment CAKE KNOCKER - Geographic Analyst Assessment Start: 11/06/21 15:56 Freq: Status: Active Protocol: Document 11/06/21 15:58 LN (Rec: 11/06/21 16:40 LN [id number]) CAKE KNOCKER/Geographic Analyst Assessment Time Spent with Patient Start date 11/06/21 Visit Start Time 15:35 End date 11/06/21 Visit End Time 15:55 Total time Care Management spent on 20 minutes patient visit-in minutes Mental Health Screening Include Onset, Duration, Intensity Psych. Hx Mental Health and Chemical Patient endorses hx of Dependency Depression, Anxiety, and SI. Patient endorses CBD and weed use as well as regular ETOH use since 2019. Substance Abuse Screening Include Onset, Duration, Intensity Presenting Problem Patient presents to ED with friend due to concern for her chronic depression and drinking problem. Patient endorses that it has been a difficult few days and patient is seeking detox and [facility] outpatient resources. Precipitating Event(s) Patient endorses that she is from her partner, her living situation is changing. Patient endorses she is in trauma therapy but her therapist has had to postpone weekly sessions over the last few weeks due to family emergency. Patient endorses that she is not currently medicated and is having difficulty sleeping. Patient Strengths Patient is seeking help, patient has established care with a MH therapist. Current Behavioral Health Provider(s) Patient sees therapist Nithya Include Facility, Provider, Ph. # NAKUL Watson (Ph. # ) weekly. Patient states she has not been able to have weekly sessions for the last few weeks with provider due to his family emergencies. Family Hx of Behavioral Abuse Patient endorses hx of trauma and endorses that she is having issues with her mother. Rehab Facilities? ((Date(s), Location(s) No hx ) History of Withdrawal? Seizures? Patient denies seizures. Patient endorses shakiness, nausea and vomiting symptoms when withdrawing. Longest Period of Sobriety 1 month in August 2019 and a week of sobriety since then Psychosocial information & Support Patient is 31 y/o female who Systems currently resides on [facility]. [place] and change her living situation. Patient endorses good friend supports. School/Work In between jobs, patient states she enjoyed her previous job but believes that she will be let go due to her recent substance use. Legal Concerns Legal Matters - Outstanding Issues None reported Mental Status Orientation (Person/Place/Time) A/Ox4 Stated Mood ok Affect (Congruent with Mood?) Euthymic, full range, congruent with mood, stable Thought Content - Specify/Describe Patient denies thought Obsessions, Delusions, Hallucinations hallucinations and paranoia. Thought Processes (Javqhtb-Govijdzn-Gznd coherent Pkfzmuqs-Xunsyupf-Mmwzwgzpww- Muzxjsjrinivyc-Ubajhco-Vcrknaqbxqqw- Thought Blocking) Speech (Frizim-Fbxr-Oqxtswe-Rapid-Soft- normal Loud-Pressured) Motor (Njsbkk-Arqllhdle-Iyml-Other) normal Insight (Crpg-Rtah-Cobn/Limited) good/fair Judgement (Jowh-Ztek-Nokr/Limited) good/fair Impulse Control (Adequate-Impaired) adequate Memory (Yerfxtqzj-Rrzjyf-Qzrkcg, intact, not formally assessed Impaired-Intact) Concentration (Intact-Impaired) intact Attention (Intact-Impaired) intact Behavior (Appropriate-Inappropriate) appropriate Additional Comment Patient is calm, communicative , and cooperative Risk Assessment Suicidal Ideation (Plan) Yes Homicidal Ideation (Plan) No Comment Patient endorses passive SI sometimes. Patient states she has a hx of talking about SI and denies any thoughts of plans. Patient endorses she does not like pain so she would not carry out anything to end her life. Patient states that she has thoughts that it would be easier to not be here. Patient denies HI and thoughts of self harm. Intervention Intervention CAKE KNOCKER enters room to meet with patient. Present in room is patient's friend, patient provides consent for friend to be in room. Patient endorses that she drank whiskey last night at about 2000. Patient endorses that she typically drinks a pint of whiskey daily for a few days on a douglas and stops drinking for a few days. Patient endorses she drank a 1/5 of whiskey last night. Patient endorses trouble sleeping, lack of appetite, ongoing and increasing stressors in her life and the absence of her regular MH therapy sessions. Patient endorses her goal is to stop drinking. Patient endorses hx of using AA but denies hx of outpatient or inpatient treatment. CAKE KNOCKER discusses detox as an option and patient indicates agreement and understanding. Patient endorses interest in [facility] outpatient resources. It is the opinion of this CAKE KNOCKER that patient is appropriate for and would benefit from detox. CAKE KNOCKER calls [facility], it is reported that they are full until Wednesday. CAKE KNOCKER calls [facility], it is reported that they currently have three beds and can review patient this evening. CAKE KNOCKER calls [facility] and it is reported that they have beds and can review patient. CAKE KNOCKER reviews the above to ED provider Brent Douglas PA-C who indicates agreement and understanding Plan RA Plan CAKE KNOCKER to seek detox bed for patient upon d/c when medically clear. CAKE KNOCKER to provide patient with [facility] outpatient resources. KIERAN Caicedo
[2021-11-06 16:43] LABS: COVID19 -Nasal RAPID Negative (Negative)
[2021-11-06 16:45] LABS: Albumin Globulin Ratio 1.3 (1.0-2.8); Globulin 4.1 g/dL (1.7-4.1); Total Protein 9.6 g/dL (6.3-8.2)
[2021-11-06 16:58] LABS: Ethanol (ETOH) < 10 mg/dL
--- NOTE | 2021-11-06 17:37 | DI.CT.S_ITS ---
PROCEDURE: CT ABDOMEN PELVIS W CON INDICATIONS: liver, abdominal pain TECHNIQUE: After the administration of intravenous contrast, axial sections acquired from the lung bases to the pubic symphysis. Coronal and sagittal reformats were performed. For radiation dose reduction, the following was used: automated exposure control, adjustment of mA and/or kV according to patient size. COMPARISON: None. FINDINGS: Image quality: Excellent. Lung bases: Unremarkable. Heart: No significant findings. ABDOMEN: Liver:There is diffuse hypoattenuation of the liver parenchyma relative to the spleen compatible with hepatic steatosis. There is hepatomegaly. Gallbladder: Unremarkable. Biliary ducts: Unremarkable. Pancreas: Homogeneous enhancement without focal lesions or pancreatic ductal dilatation. No peripancreatic inflammation or organized fluid collections.. Spleen: Unremarkable. Adrenal Glands: Unremarkable. Kidneys and Ureters:Kidneys are symmetric in size and enhancement, and there is no obstructive uropathy. No perinephric inflammatory changes. Ureters are normal in course and caliber. Stomach and Bowel: Stomach, small bowel loops, and colon appear unremarkable. Minimal circumferential wall thickening of the hepatic flexure distal transverse colon and descending colon without adjacent inflammatory changes likely related to incomplete distension. Normal appendix. Peritoneum: No abnormal intraperitoneal fluid. No free air. Ventral Wall: There is a fat-containing umbilical hernia without acute inflammation. Abdominal Nodes: No retroperitoneal or mesenteric adenopathy by size criteria. Vessels: Aorta and inferior vena cava are normal in size. PELVIS: Pelvic Organs: Unremarkable. Bladder:Kidneys are symmetric in size and enhancement, and there is no obstructive uropathy. No perinephric inflammatory changes. Ureters are normal in course and caliber. Pelvic Nodes: No enlarged lymph nodes. Miscellaneous: No hernias are seen. Bones: Unremarkable. IMPRESSION: 1. Hepatomegaly with moderate diffuse hepatic steatosis. 2. Minimal circumferential wall thickening of the ascending colon near the hepatic flexure, distal transverse colon, and descending colon without associated inflammatory changes are likely related to incomplete distension. However, infectious/inflammatory colitis not completely excluded if clinically appropriate. The appendix is normal. 3. Fat containing umbilical hernia without acute inflammation. Dictated by: Weston Sparks M.D. on 11/06/2021 at 19:02 Approved by: Weston Sparks M.D. on 11/06/2021 at 19:07
--- NOTE | 2021-11-06 19:15 | PC.NURSE ---
pt having life stress related to relationship changes and unable to visit with her counselor due to their personal circumstances.
[2021-11-06 19:31] VITALS: BP 184/106; PULSE 88; RESP 18; O2SAT 100
--- NOTE | 2021-11-06 20:14 | CM.SWNOTE ---
GRANITE WORKER Note GRANITE WORKER calls [facility] once patient is medically clear and it is reported that they cannot screen patient until 2200. [facility] previously reported that they are full until Wednesday. GRANITE WORKER calls [facility] and it is reported that they can screen patient now for a bed tomorrow AM. Patient endorses that she is uncertain about the wait. GRANITE WORKER calls [facility] and it is reported that they are full. GRANITE WORKER calls [facility] and it is reported that they are closed, no intake to answer phone. GRANITE WORKER reviews this with patient and she chooses to proceed with [facility] screening call. Patient conducts screening. It is reported that patient is to call [facility] tomorrow AM at [phone]. GRANITE WORKER faxes clinicals for review, RN to report patient's medically clear status. Plan: patient to board in ED until AM, patient to call [facility] at [phone] (Ph.#[phone]) for bed placement. Patient's father reports he can drive patient to detox. Jyothi Abdi GRANITE WORKER
--- NOTE | 2021-11-06 20:22 | PC.NURSE ---
I spoke with the nurse Burgess at [facility] for the nurse to nurse report. They request that we call at 2300 tonight (11/06) for a scheduled bed placement. charge nurse aware. provider aware.
[2021-11-06] MEDS: NICOTINE 21 MG PATCH TOP (20:29)
[2021-11-06] MEDS: LORazepam 0.5 MG TABLET 1 MG PO (20:30)
--- NOTE | 2021-11-06 23:13 | PC.NURSE ---
Called [facility]. Pt accepted for arrival time at midnight. provider aware
[2021-11-06 23:14] VITALS: BP 150/99; PULSE 92; RESP 15; O2SAT 100
== END 2021-11-06 23:16 | disposition home or self-care (01) ==
PROVIDERS: Emergency Provider Physician Assistant; PCP Physician Assistant Medical
DX: F10.20 Alcohol dependence, uncomplicated (principal); F32.A Depression, unspecified; Y90.0 Blood alcohol level of less than 20 mg/100 ml; Z20.822 Contact with and (suspected) exposure to COVID-19
CPT/HCPCS: 36415; 74177; 80053; 80305; 80320; 80329; 81003; 81025; 85025; 87635; 99284; C9803; G0480; Q9967

== ENCOUNTER → 2022-11-21 14:36 | Outpatient (CLI) | payer OTHER, MEDICAID, SELFPAY | PROVIDERS: PCP Physician Assistant Medical; Visit Provider Nurse Practitioner Family | DX: R30.0 Dysuria (principal) | CPT/HCPCS: 81002; 87086; 87210 ==

== ENCOUNTER → 2025-07-30 12:30 | Outpatient (CLI) | payer OTHER, SELFPAY ==
--- NOTE | 2025-07-30 12:32 | DI.US.S_ITS ---
PROCEDURE: US OB >= 14 WEEKS FETUS INDICATIONS: Complete Anatomy Scan OUTSIDE/PRIOR DATING DATA: Working XAVIER: 12/14/2025 TECHNIQUE: Real-time scanning was performed of the fetus, with image documentation and biometric measurements. Endovaginal scanning: Not performed COMPARISON: None. FINDINGS: General: A single living intrauterine gestation is present. Presentation: Variable. Placenta: Placental position is posterior , without previa. Amniotic fluid index: 18 cm, normal range is 5-24 cm. Single deepest vertical pocket is 5.4 cm. heart rate: 140 beats per minute. Maternal cervical canal: 3.4 cm long. Normal lower limit is 2.5 cm. biometrics: Biparietal diameter: 5.1 centimeters, 21 weeks 2 days Head circumference: 18.2 centimeters, 20 weeks 4 days Abdominal circumference: 16.7 centimeters, 21 weeks 5 days Femur length: 3.5 centimeters, 21 weeks 0 days Clinically estimated gestational age: 20 weeks 3 days Composite gestational age from present scan: 21 weeks 1 day Estimated weight and percentile: 417 grams, 90 percentile Anatomic survey: Neuro: Ventricles are non-dilated at less than 10 mm. Cisterna magna is normal at 3-11 mm. Cerebellum is normal in size and morphology. Nuchal skin fold: Normal at less than 6 mm between 14-21 weeks gestational age. Face: Nose and lips, facial profile are normal. Spine: No evidence for spina bifida. Heart: 4-chambered heart is present, with normal ventricular outflow tracts. Diaphragm: Diaphragm is intact. Stomach: Left-sided stomach is present. Kidneys: No hydronephrosis. Normal is less than 5 mm in 2nd trimester, less than 7 mm in 3rd trimester. Cord: 3-vessel cord has orthotopic insertion. Bladder: Normal in size. Extremities: All 4 extremities identified. IMPRESSION: Single living intrauterine at twenty weeks 3 days, XAVIER of 12/14/2025. Estimated weight of 417 grams, 90th percentile. Normal anatomy survey. We strive to produce accurate, complete, and clear reports of imaging services. To assist us in improving patient care, this report was composed using standard report templates and voice recognition software. Therefore, it may contain abnormal punctuation, insertions and/or omissions. Occasional wrong-word or sound-alike substitutions may occur. Though we review the report and make efforts to correct it, we do recommend that the report be read carefully in proper context to recognize any text inaccuracies. Dictated by: Severo De La O M.D. on 07/31/2025 at 16:26 Approved by: Severo De La O M.D. on 07/31/2025 at 16:27
== END ==
LOC: US 12:31
PROVIDERS: PCP Physician Assistant Medical; Referring Provider Physician Assistant Medical; Visit Provider Advanced Practice Midwife
DX: Z34.92 Encounter for supervision of normal pregnancy, unspecified, second trimester (principal); Z3A.20 20 weeks gestation of pregnancy
CPT/HCPCS: 76811